=== PATIENT | male | born 1980 | race Hispanic/Latino ===

== ENCOUNTER 2021-02-10 23:31 | Emergency (ER) | payer OTHER ==
--- NOTE | 2021-02-11 05:16 | XRay Report ---
CHEST 2 VIEWS INDICATION / CLINICAL INFORMATION: Chest Pain. COMPARISON: None available. FINDINGS: SUPPORT DEVICES: None. HEART / MEDIASTINUM: No significant abnormality. LUNGS / PLEURA: No significant pulmonary or pleural abnormality. No pneumothorax. ADDITIONAL FINDINGS: No significant additional findings. IMPRESSION: 1. No acute findings. Signer Name: Franklin Garcia MD Signed: 02/11/2021 5:12 AM Workstation Name: [id number]
[2021-02-11 05:25] LABS: Basophils % (Auto) 0.3 % (0.0-1.8); Eosinophils # (Auto) 0.2 K/mm3 (0.0-0.4); Eosinophils % (Auto) 2.3 % (0.0-4.3); Hematocrit 44.4 % (35.5-45.6); Lymphocytes % (Auto) 40.9 % (13.4-35.0); Mean Corpuscular HGB Conc 34 % (32-34); Mean Corpuscular Volume 88 fl (84-94); Monocytes # (Auto) 0.8 K/mm3 (0.0-0.8); Monocytes % (Auto) 8.1 % (0.0-7.3); Platelet Count 273 K/mm3 (140-440); Red Blood Count 5.04 M/mm3 (3.65-5.03); Red Cell Distribution Width 12.7 % (13.2-15.2)
[2021-02-11 05:48] LABS: Alanine Aminotransferase 26 units/L (7-56); Albumin 4.3 g/dL (3.9-5); Blood Urea Nitrogen 13 mg/dL (9-20); Calcium 9.5 mg/dL (8.4-10.2); Hemolysis Index 4
[2021-02-11 06:02] LABS: BUN/Creatinine Ratio 19
--- NOTE | 2021-02-11 06:13 | Emergency Department Report ---
ED Chest Pain HPI - General Chief Complaint: Chest Pain Stated Complaint: CHEST PAINS PUI?: No Time Seen by Provider: 02/11/21 05:57 Source: patient Mode of arrival: Ambulatory Limitations: No Limitations - History of Present Illness Initial Comments: Chief complaint: "I was scared. I thought it was my heart." HPI: This is a 40-year-old male with history of tobacco dependence and BMI 50 who presents with chest pain for the last 2 days. Chest pain mostly noticed at night. Sharp fleeting chest pain rating to the back. He also has palpitations associated with the pain. Pain is mild. Intermittent. The episode lasts teto roximately 1 to 2 seconds. No association with exertion or eating. 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 Patient is currently pain-free. MD Complaint: chest pain -: Sudden Onset: during rest Pain Location: substernal Severity: mild Quality: sharp Consistency: now resolved Improves With: nothing Worsens With: nothing Treatments Prior to Arrival: none - Related Data Allergies Allergy/AdvReac Type Severity Reaction Status Date / Time No Known Allergies Allergy Unverified 02/11/21 04:26 Heart Score - HEART Score History: Slightly suspicious EKG: Normal Age: < 45 Risk factors: 1-2 risk factors Troponin: < normal limit HEART Score: 1 - EKG Read Time Time EKG Completed: 00:52 EKG Read Time: 00:57 ED Review of Systems ROS: Stated complaint: CHEST PAINS Other details as noted in HPI Comment: All other systems reviewed and negative Constitutional: denies: fever Respiratory: shortness of breath. denies: cough Cardiovascular: chest pain, palpitations Gastrointestinal: denies: abdominal pain, nausea, vomiting ED Past Medical Hx - Past Medical History Previous Medical History?: No - Surgical History Past Surgical History?: No - Family History Family history: hypertension - Social History Smoking Status: Current Every Day Smoker Substance Use Type: None ED Physical Exam - General Limitations: No Limitations General appearance: alert, in no apparent distress, other (comfortable, well- appearing) - Head Head exam: Present: atraumatic, normocephalic - Eye Eye exam: Present: normal appearance - ENT ENT exam: Present: mucous membranes moist - Neck Neck exam: Present: normal inspection, full ROM - Respiratory Respiratory exam: Present: normal lung sounds bilaterally. Absent: respiratory distress - Cardiovascular Cardiovascular Exam: Present: regular rate, normal rhythm, normal heart sounds. Absent: systolic murmur, diastolic murmur, rubs, gallop - GI/Abdominal GI/Abdominal exam: Present: soft, normal bowel sounds, other (obese habitus). Absent: distended, tenderness, guarding, rebound - Rectal Rectal exam: Present: deferred - Extremities Exam Extremities exam: Present: normal inspection - Neurological Exam Neurological exam: Present: alert, oriented X3 - Psychiatric Psychiatric exam: Present: normal affect, normal mood - Skin Skin exam: Present: warm, dry, intact, normal color. Absent: rash ED Course Vital Signs 02/11/21 00:47 Temperature 98.0 F Pulse Rate 68 Respiratory 18 Rate Blood Pressure 114/52 O2 Sat by Pulse 96 Oximetry ED Medical Decision Making - Lab Data Result diagrams: 02/11/21 04:32 02/11/21 04:32 - EKG Data -: EKG Interpreted by [facility] EKG shows normal: sinus rhythm, axis, intervals, QRS complexes, ST-T waves Rate: normal - Radiology Data Radiology results: report reviewed Patient Name: THUAN PONCE Gender: Male Date of : 1980 Referring Provider: DOC, ED Organization: [facility] Accession Number: [id number] Requested Date: February 11, 2021 04:26 Report Status: Final Requested Procedure: 1 Procedure Description: XR chest routine 2V Modality: XR Findings Reporting MD: Franklin Garcia Dictation Time: February 11, 2021 04:12 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 COMPARISON: None available. FINDINGS: SUPPORT DEVICES: None. HEART / MEDIASTINUM: No significant abnormality. LUNGS / PLEURA: No significant pulmonary or pleural abnormality. No pneumothorax. ADDITIONAL FINDINGS: No significant additional findings. IMPRESSION: 1. No acute findings. Signer Name: Franklin Garcia MD Signed: 02/11/2021 4:12 AM Workstation Name: [id number] - Medical Decision Making chest pain, atypical for ACS. PERC negative. 6 hour troponin obtained negative. DDX: PVC, atrial fibrilllation, chest walll pain, GERD, REferred to outpatient medicine physician and uniformer. Recommended lifestyle modifications considering BMI and tobacco use. dc'd home in stable condition, EKG CXR CBC chem all normal Critical care attestation.: If time is entered above; I have spent that time in minutes in the direct care of this critically ill patient, excluding procedure time. ED Disposition Clinical Impression: Strain of chest wall Disposition: DC-01 TO HOME OR SELFCARE Is pt being admited?: No Does the pt Need Aspirin: No Condition: Stable Instructions: Chest Wall Pain, [id number] Referrals: BERE ELIAS MD [Staff Physician] - 3-5 Days AVERY HUGO MD [Staff Physician] - 3-5 Days Forms: Work/School Release Form(ED)
[2021-02-11 08:06] VITALS: BP 122/83
--- NOTE | 2021-02-13 19:02 | Electrocardiograph Report ---
[facility] Test Date: 2021-02-11 Test Time: 00:52:33 Pat Name: THUAN PONCE Department: Room: Gender: M Acct Exec: : 1980 Requested By: DINH LOONEY Order Number: [id number] Reading MD: Nighat Keyes Measurements Intervals Ragland Rate: 68 P: 8 MS: 153 QRS: 35 QRSD: 107 T: 62 QT: 413 QTc: 440 Interpretive Statements Sinus rhythm No previous ECG available for comparison Electronically Signed On 02-13-2021 19:01:43 EDT by Nighat Keyes
== END 2021-02-11 08:07 | disposition home or self-care (01) ==
LOC: ED 23:31
DX: S29.011A Strain of muscle and tendon of front wall of thorax, initial encounter (principal); F17.200 Nicotine dependence, unspecified, uncomplicated; Z79.899 Other long term (current) drug therapy; X58.XXXA Exposure to other specified factors, initial encounter; Y93.89 Activity, other specified; Y92.89 Other specified places as the place of occurrence of the external cause; Y99.8 Other external cause status
CPT/HCPCS: 36415; 71046; 80053; 84484; 85025; 93005